=== PATIENT | female | born 2000 | race Hispanic/Latino ===

== ENCOUNTER 2022-10-26 09:52 | Emergency (ER) | payer OTHER ==
[~2022-10-26] VITALS: Ht 157.5 cm; Wt 66.7 kg
[2022-10-26 11:56] LABS: BASO % 0.3 % (0.0-1.0); EOS % 0.7 % (0.0-3.0); HEMATOCRIT 35.2 % (36.0-47.0); LYMPH # 1.6 10^3/uL (1.5-5.0); LYMPH % 27.8 % (24.0-44.0); MEAN CORPUSCULAR HEMOGLOBIN 29.2 pg (27.0-33.0); MEAN CORPUSCULAR HGB CONC 34.1 g/dl (32.0-36.5); MEAN CORPUSCULAR VOLUME 85.6 fl (80.0-96.0); MONO # 0.5 10^3/uL (0.0-0.8); MONO % 7.8 % (2.0-8.0); NEUTROPHILS # 3.7 10^3/uL (1.5-8.5); NEUTROPHILS % 63.2 % (36.0-66.0); PLATELET COUNT, AUTOMATED 296 10^3/uL (150-450); RED BLOOD COUNT 4.11 10^6/uL (4.00-5.40); WHITE BLOOD COUNT 5.9 10^3/uL (4.0-10.0)
[2022-10-26 12:32] LABS: ALBUMIN 3.9 G/DL (3.2-5.2); ALKALINE PHOSPHATASE 57 U/L (46-116); ALT/SGPT 13 U/L (7.0-40); AST/SGOT 12 U/L (<34); BILIRUBIN,DIRECT 0.1 MG/DL (<0.4); BILIRUBIN,TOTAL 0.6 MG/DL (0.3-1.2); LIPASE 34 U/L (12-53); TOTAL PROTEIN 7.3 G/DL (5.7-8.2)
[2022-10-26 13:12] LABS: HCG, SERUM QUALITATIVE POSITIVE (NEGATIVE)
[2022-10-26] MEDS ORDERED: OMEP-173 PO (14:26)
[2022-10-26 14:40] VITALS: BP 135/81; TEMP 97.8; O2SAT 98
== END 2022-10-26 14:41 | disposition home or self-care (01) ==
LOC: M ED 09:52
DX: O26.891 Other specified pregnancy related conditions, first trimester (principal); R10.13 Epigastric pain; Z3A.08 8 weeks gestation of pregnancy

== ENCOUNTER 2022-11-05 15:14 | Emergency (ER) | payer OTHER ==
[~2022-11-05] VITALS: Ht 160 cm; Wt 66.8 kg
[~2022-11-05 15:14] MED LIST: OMEP-173 PO
[2022-11-05 15:23] VITALS: BP 128/64; TEMP 98.3; O2SAT 99
[2022-11-05 16:40] LABS: BASO % 0.4 % (0.0-1.0); EOS % 0.5 % (0.0-3.0); HEMATOCRIT 37.6 % (36.0-47.0); HEMOGLOBIN 12.9 g/dl (12.0-15.5); LYMPH # 1.7 10^3/uL (1.5-5.0); LYMPH % 22.7 % (24.0-44.0); MEAN CORPUSCULAR HEMOGLOBIN 29.5 pg (27.0-33.0); MEAN CORPUSCULAR HGB CONC 34.3 g/dl (32.0-36.5); MONO # 0.4 10^3/uL (0.0-0.8); MONO % 5.1 % (2.0-8.0); NEUTROPHILS # 5.4 10^3/uL (1.5-8.5); PLATELET COUNT, AUTOMATED 308 10^3/uL (150-450); RED BLOOD COUNT 4.37 10^6/uL (4.00-5.40); WHITE BLOOD COUNT 7.6 10^3/uL (4.0-10.0)
[2022-11-05 17:06] LABS: BLOOD UREA NITROGEN 8 MG/DL (9-23); CALCIUM LEVEL 9.7 MG/DL (8.5-10.1); CARBON DIOXIDE LEVEL 23 MMOL/L (20-31); CHLORIDE LEVEL 104 MMOL/L (98-107); CREATININE FOR GFR 0.42 MG/DL (0.55-1.30); GLOMERULAR FILTRATION RATE > 60.0 (>60); GLUCOSE, FASTING 89 MG/DL (60-100); POTASSIUM SERUM 3.5 MMOL/L (3.5-5.1); SODIUM LEVEL 138 MMOL/L (136-145)
[2022-11-05 17:33] LABS: HCG, SERUM QUANTITATIVE 115637.2 MIU/ML (<4.2)
== END 2022-11-05 20:09 | disposition left against medical advice (07) ==
LOC: M ED 15:14
DX: R10.9 Unspecified abdominal pain (principal); Z53.21 Procedure and treatment not carried out due to patient leaving prior to being seen by health care provider

== ENCOUNTER 2023-05-16 08:12 | Inpatient (IN) | payer OTHER ==
[~2023-05-16] VITALS: Ht 157.5 cm; Wt 72.5 kg
[2023-05-16 08:38] VITALS: BP 115/77
[2023-05-16] MEDS ORDERED: PRENTAB9 PO (08:58)
[2023-05-16] MEDS ORDERED: HOME MED LIST COMPLETE! XX SCH (09:00)
[2023-05-16] MEDS ORDERED: TRANEXAMIC ACID INJection 1,000 MG in NS 100 ML IV PRN (10:00)
[2023-05-16] MEDS ORDERED: LIDOCAINE 1% MDV 20ML VIAL INFIL PRN (10:00)
[2023-05-16] MEDS ORDERED: OXYTOCIN DRIP 30 UNITS in IV 1 EA IV PRN (10:00)
[2023-05-16 10:36] LABS: HEMATOCRIT 38.2 % (36.0-47.0); HEMOGLOBIN 13.1 g/dl (12.0-15.5); MEAN CORPUSCULAR HGB CONC 34.3 g/dl (32.0-36.5); MEAN CORPUSCULAR VOLUME 87.4 fl (80.0-96.0); PLATELET COUNT, AUTOMATED 220 10^3/uL (150-450); RED BLOOD COUNT 4.37 10^6/uL (4.00-5.40)
[2023-05-16 12:16] VITALS: BP 142/79
[2023-05-16] MEDS ORDERED: EPIDURAL/PCA KEYS XX PRN (13:25)
[2023-05-16] MEDS ORDERED: diphenhydrAMINE 50MG/ML VIAL IV PRN (13:25)
[2023-05-16] MEDS ORDERED: LR 500 ML IV PRN (13:25)
[2023-05-16] MEDS ORDERED: ePHEDrine SULFATE 25 MG/5 ML(5MG/ML) SYRINGE IVP PRN (13:25)
[2023-05-16] MEDS ORDERED: NALOXONE INJ 0.4MG/1ML VIAL IV PRN (13:25)
[2023-05-16] MEDS ORDERED: ONDANSETRON 4MG 2ML VIAL IV PRN (13:25)
[2023-05-16] MEDS: LR 1,000 ML IV SCH (13:58)
[2023-05-16] MEDS: FENTANYL/ROPIVACAINE/NACL BAG 100 ML EPIDURAL SCH (13:58)
[2023-05-16] MEDS: LACTATED RINGER'S 1000 ML IV STA (13:58)
[2023-05-16] MEDS: OXYTOCIN DRIP 30 UNITS in IV 1 EA IV PRN (15:33)
[2023-05-16] MEDS: METHYLERGONOVINE MALEATE 0.2MG/ML 1ML VIAL IM PRN (15:34)
[2023-05-16] MEDS ORDERED: ACETAMINOPHEN TAB 650MG DOSE (2X325MG) PO PRN (15:55)
[2023-05-16] MEDS ORDERED: METHYLERGONOVINE MALEATE 0.2 MG TAB PO PRN (15:55)
[2023-05-16] MEDS: OXYTOCIN DRIP 30 UNITS in IV 1 EA IV SCH (16:12)
[2023-05-16 18:20] VITALS: BP 127/76; O2SAT 99
[2023-05-16] MEDS: IBUPROFEN 600MG TAB PO PRN (18:32)
[2023-05-16] MEDS: diphenhydrAMINE 50MG CAP PO PRN (21:57)
[2023-05-17 06:00] VITALS: BP 108/54; O2SAT 98
[2023-05-17] MEDS: PRENATAL VITAMINS CHEWABLE TABLET PO SCH (07:54)
[2023-05-17] MEDS: DIBUCAINE 1% OINTMENT 30GM TOP PRN (07:54)
[2023-05-17] MEDS: DOCUSATE SODIUM 100MG CAPSULE PO PRN (07:55)
[2023-05-17] MEDS: IBUPROFEN 800 MG TAB PO PRN (13:19)
[2023-05-17] MEDS: ACETAMINOPHEN 500 MG TAB PO PRN (16:19)
[2023-05-17 18:00] VITALS: BP 110/60; O2SAT 99
[2023-05-18 06:00] VITALS: BP 110/59; O2SAT 98
== END 2023-05-18 12:00 | disposition home or self-care (01) | DRG 807 ==
LOC: M LDO 08:12 → M LDI 10:20 → M OBS 18:20
PROVIDERS: ADMIT Advanced Practice Midwife; ATTEND Advanced Practice Midwife
PROC: 10E0XZZ Delivery of Products of Conception, External Approach (ICD-10-PCS; principal; 2023-05-16)
PROC: 0HQ9XZZ Repair Perineum Skin, External Approach (ICD-10-PCS; 2023-05-16)
DX: O69.81X0 Labor and delivery complicated by cord around neck, without compression, not applicable or unspecified (principal); Z37.0 Single live birth; Z3A.37 37 weeks gestation of pregnancy; O70.0 First degree perineal laceration during delivery

== ENCOUNTER 2024-02-08 12:26 | Day surgery (SDC) | payer OTHER ==
[~2024-02-08] VITALS: Ht 157.5 cm; Wt 70.1 kg
[~2024-02-08 12:26] MED LIST changes: +PNV,1TAB3 PO; +PRENTAB9 PO
[2024-02-08] MEDS ORDERED: SUGAMMADEX SODIUM 500 MG/5 ML VIAL (BRIDION) As Ordered ONE (16:08)
[2024-02-08] MEDS ORDERED: propofoL 200 MG/20 ML VIAL As Ordered ONE (16:08)
[2024-02-08] MEDS ORDERED: LIDOCAINE 2% 100MG/5ML SDV (FOR ANES.) As Ordered ONE (16:08)
[2024-02-08] MEDS ORDERED: ROCURONIUM BROMIDE 50MG/5ML VIAL As Ordered ONE (16:09)
[2024-02-08] MEDS ORDERED: ACETAMINOPHEN 1000MG/100ML IV BAG As Ordered ONE (16:10)
[2024-02-08] MEDS ORDERED: ONDANSETRON 4MG 2ML VIAL As Ordered ONE (16:11)
[2024-02-08] MEDS ORDERED: MIDAZOLAM INJ 2MG/2ML VIAL As Ordered ONE (16:12)
[2024-02-08] MEDS ORDERED: fentaNYL 100 MCG/2 ML INJECTION As Ordered ONE (16:12)
[2024-02-08] MEDS ORDERED: ONDANSETRON 4MG 2ML VIAL IV PRN (17:10)
[2024-02-08] MEDS ORDERED: fentaNYL 100 MCG/2 ML INJECTION IV PRN (17:10)
[2024-02-08] MEDS ORDERED: LR 1,000 ML IV SCH (17:10)
[2024-02-08] MEDS ORDERED: HYDROMORPHONE HCL 0.5 MG/ 0.5 ML SYRINGE IV PRN (17:10)
[2024-02-08] MEDS ORDERED: oxyCODONE 5MG TAB PO PRN (17:10)
[2024-02-08] MEDS: OXYMETAZOLINE 0.05% NASAL SPRAY (AFRIN) As Ordered ONE (17:19)
[2024-02-08 18:07] VITALS: BP 123/64; TEMP 97.5; O2SAT 99
[2024-02-09] MEDS ORDERED: UNRESOLVED CLARIFICATION ENTRY XX SCH (00:01)
== END 2024-02-08 18:11 | disposition home or self-care (01) ==
LOC: M SDC 12:26
PROVIDERS: ATTEND Otolaryngology
DX: J35.01 Chronic tonsillitis (principal)
CPT/HCPCS: 42826; 81025; 88302; J0131; J1100; J2250; J2405; J3010

== ENCOUNTER → 2024-03-13 | Outpatient (CLI) | payer OTHER ==
[2024-03-13 18:12] LABS: BASO % 0.7 % (0.0-1.0); EOS # 0.1 10^3/uL (0.0-0.5); EOS % 2.1 % (0.0-3.0); HEMATOCRIT 33.6 % (36.0-47.0); HEMOGLOBIN 10.6 g/dl (12.0-15.5); LYMPH # 2.5 10^3/uL (1.5-5.0); LYMPH % 41.2 % (24.0-44.0); MEAN CORPUSCULAR HEMOGLOBIN 27.9 pg (27.0-33.0); MEAN CORPUSCULAR HGB CONC 31.5 g/dl (32.0-36.5); MEAN CORPUSCULAR VOLUME 88.4 fl (80.0-96.0); MONO # 0.4 10^3/uL (0.0-0.8); MONO % 6.6 % (2.0-8.0); NEUTROPHILS % 49.2 % (36.0-66.0); PLATELET COUNT, AUTOMATED 296 10^3/uL (150-450); WHITE BLOOD COUNT 6.1 10^3/uL (4.0-10.0)
[2024-03-13 18:20] LABS: FERRITIN 13.4 NG/ML (7.3-270.7)
[2024-03-18 17:03] LABS: FACTOR V111 ACTIVITY, CLOTTING 76 % normal (50-180); FACTOR VIII APTT 32 sec (23-32); RISTOCETIN COFACTOR 60 % normal (42-200); VW FACTOR ANTIGEN 58 % (50-217)
[2024-03-19 19:06] LABS: COAGULATION FACTOR XI ACTIVITY 61 % (60-150); FACTOR IX ANTIGEN 102.4 % (.)
== END ==
LOC: M PLALAB 15:35
PROVIDERS: ATTEND Internal Medicine Hematology
DX: D64.9 Anemia, unspecified (principal); R79.1 Abnormal coagulation profile